=== PATIENT | male | born 1985 | race Caucasian/White ===

== ENCOUNTER 2018-03-07 16:22 | Emergency (ER) | payer BC ==
[~2018-03-07] VITALS: Ht 175.3 cm; Wt 113.4 kg
[~2018-03-07 16:22] MED LIST: AZIT500T PO; FLUO20CA16 PO; FLUO40CA9 PO; OXYC-323 PO; [UNRECOGNIZED DRUG - OTHER]
[2018-03-07] MEDS ORDERED: HYDROcodone/APAP 5/325MG 1 TAB TABLET PO ONE (16:45)
--- NOTE | 2018-03-07 16:48 | PHYS DOC ---
Past History Past Medical History: Anxiety Past Surgical History: Appendectomy, Tonsillectomy Alcohol Use: Occasionally Drug Use: None Adult General HPI HPI Patient is a 32-year-old male who presents for evaluation of left knee injury. 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 The knee has become somewhat stiff and he feels like there is pressure and has pain when weightbearing or bending the knee. It does not feel unstable to him. He has no history of previous injury to the knee. He denies significant past medical history. He is alert and oriented 4, calm, and appears to be in no distress. Review of Systems Review of Systems Constitutional: Denies fever or chills [] Eyes: Denies change in visual acuity, redness, or eye pain [] HENT: Denies nasal congestion or sore throat [] Respiratory: Denies cough or shortness of breath [] Cardiovascular: No additional information not addressed in HPI [] GI: Denies abdominal pain, nausea, vomiting, bloody stools or diarrhea [] : Denies dysuria or hematuria [] Musculoskeletal: Denies back pain, left knee pain Integument: Denies rash or skin lesions [] Neurologic: Denies headache, focal weakness or sensory changes [] Endocrine: Denies polyuria or polydipsia [] All other systems were reviewed and found to be within normal limits, except as documented in this note. Current Medications Current Medications Current Medications Medications (Trade) Dose Ordered Sig/Dali Start Time Stop Time Status Last Admin Dose Admin Acetaminophen/ Hydrocodone Bitart (Lortab 5/325) 1 tab 1X ONCE 03/07/18 16:45 03/07/18 16:46 UNV Allergies Allergies Allergies Coded Allergies Type Severity Reaction Last Updated Verified No Known Drug Allergies 05/08/15 No Physical Exam Physical Exam Constitutional: Well developed, well nourished, no acute distress, non-toxic appearance. [] HENT: Normocephalic, atraumatic, bilateral external ears normal, oropharynx moist, no oral exudates, nose normal. [] Eyes: PERRLA, EOMI, conjunctiva normal, no discharge. [] Neck: Normal range of motion, no tenderness, supple, no stridor. [] Cardiovascular:Heart rate regular rhythm, no murmur [] Lungs & Thorax: Bilateral breath sounds clear to auscultation [] Abdomen: Bowel sounds normal, soft, no tenderness, no masses, no pulsatile masses. [] Skin: Warm, dry, no erythema, no rash. [] Back: No tenderness, no CVA tenderness. [] Extremities: no cyanosis, no clubbing, ROM intact, no edema. [] left knee with mild effusion, FROM left knee, no deformity/dislocation Neurologic: Alert and oriented X 3, normal motor function, normal sensory function, no focal deficits noted. [] Psychologic: Affect normal, judgement normal, mood normal. [] EKG EKG [] Radiology/Procedures Radiology/[place] [address] IMAGING REPORT Signed PATIENT: SOTO MANLEY ACCOUNT: [id number] : 1985 LOCATION: ER AGE: 32 SEX: M EXAM STATUS: REG ER ORD. PHYSICIAN: MAGDY BLOUNT DO REASON: left knee pain PROCEDURE: KNEE LEFT 3V Three-view left knee radiographs 03/07/2018 CLINICAL HISTORY: Twisting injury to the left knee with swelling and pain. AP, lateral and oblique digital radiographs of the left knee were obtained. No fracture or dislocation of the left knee is seen. Very mild degenerative changes are seen involving the medial and lateral compartment of the left knee. There is no definite radiographic evidence of a joint effusion. IMPRESSION: No fracture or dislocation of the left knee is seen. Electronically signed by: Cliff Yost MD (03/07/2018 5:30 PM) [facility] DICTATED AND SIGNED BY: CLIFF YOST MD DATE: 03/07/18 2436 CC: MAGDY BLOUNT DO; CASH CRUZ ~ Course & Med Decision Making Course & Med Decision Making Pertinent Labs and Imaging studies reviewed. (See chart for details) @7222 - patient informed of x-ray results. He has no additional complaints. Crutches provided along with education and left knee immobilizer applied. The patient would prefer to follow up with his orthopedic surgeon and has been encouraged to do so. Pain medication provided. Dragon Disclaimer Dragon Disclaimer This electronic medical record was generated, in whole or in part, using a voice recognition dictation system. Departure Departure: Impression: Primary Impression: Acute internal derangement of knee Additional Impression: Left knee injury Disposition: 01 HOME, SELF-CARE Condition: STABLE Referrals: CASH CRUZ (PCP) Additional Instructions: Follow-up with your personal orthopedic surgeon. Take the prescribed medicine as directed, as needed. Return to the ER for new or worsening symptoms. Scripts Hydrocodone Bit/Acetaminophen (NORCO 5-325 TABLET) 1 Each Tablet 1 TAB PO TID PRN for PAIN, #20 TAB Prov: MAGDY BLOUNT DO 03/07/18 Problem Qualifiers MAGDY BLOUNT DO Mar 07, 2018 16:48
--- NOTE | 2018-03-07 17:34 | RAD ---
Three-view left knee radiographs 03/07/2018 CLINICAL HISTORY: Twisting injury to the left knee with swelling and pain. AP, lateral and oblique digital radiographs of the left knee were obtained. No fracture or dislocation of the left knee is seen. Very mild degenerative changes are seen involving the medial and lateral compartment of the left knee. There is no definite radiographic evidence of a joint effusion. IMPRESSION: No fracture or dislocation of the left knee is seen. Electronically signed by: Cliff Yost MD (03/07/2018 5:30 PM) [facility]
[2018-03-07 17:40] VITALS: BP 143/102
[2018-03-07] MEDS ORDERED: HYDR-971 PO (17:40)
== END 2018-03-07 17:45 | disposition home or self-care (01) ==
LOC: ER 16:22
DX: S89.92XA Unspecified injury of left lower leg, initial encounter (principal); M23.92 Unspecified internal derangement of left knee; F41.9 Anxiety disorder, unspecified; X50.1XXA Overexertion from prolonged static or awkward postures, initial encounter; Y93.89 Activity, other specified; Y99.8 Other external cause status; Y92.89 Other specified places as the place of occurrence of the external cause
CPT/HCPCS: 29505; 73562; 99284

== ENCOUNTER 2019-10-02 21:53 | Emergency (ER) | payer BC ==
[~2019-10-02] VITALS: Ht 175.3 cm; Wt 117.7 kg
[~2019-10-02 21:53] MED LIST changes: +HYDR-3165 PO; -OXYC-323 PO; +OXYC1TAB15 PO
[2019-10-02 23:00] VITALS: BP 165/130
--- NOTE | 2019-10-02 23:14 | PHYS DOC ---
Past History Past Medical History: Alcoholism, Anxiety, Hypertension Past Surgical History: Appendectomy, Tonsillectomy Past Surgical History left shoulder and left knee Alcohol Use: Heavy Drug Use: None Adult General Chief Complaint Chief Complaint: LOWER BACK PAIN OR INJURY HPI HPI Patient is a 34-year-old male presents the ED with left sided rib pain and back pain following a fall. Patient states that after having 12 beers he must have passed out and fell and was found on his back on the floor. Patient does not recall hitting his head. Denies pain. He is currently having left chest wall pain, bilateral lower back pain, and an aching in his testicles. Patient reports the back pain and testicle aching been going on for the past couple of weeks. He denies fevers, dysuria, hematuria, headache, nausea, or vomiting. Patient also reports episodes of bloody stool a few days ago but denies abdominal pain. Patient also reports that he recently ran out of his blood pressure medication that his blood pressure has been running high. Reports drinking 12 beers daily. Review of Systems Review of Systems Constitutional: Denies fever or chills Eyes: Denies redness or eye pain HENT: Denies nasal congestion or sore throat Respiratory: Denies cough or shortness of breath Cardiovascular: Reports left sided chest pain; denies palpitations GI: Denies abdominal pain, nausea, or vomiting. Reports blood in stool. : Denies dysuria or hematuria. Reports aching in testicles. Musculoskeletal: Bilateral lower back pain. Denies neck pain Integument: Denies rash or skin lesions Neurologic: Denies headache, focal weakness or sensory changes Complete systems were reviewed and found to be within normal limits, except as documented in this note. Allergies Allergies Allergies Coded Allergies Type Severity Reaction Last Updated Verified No Known Drug Allergies 05/08/15 No Physical Exam Physical Exam Constitutional: Well developed, disheveled, no acute distress, non-toxic appearance HENT: Normocephalic, atraumatic, oropharynx moist Eyes: PERRL, EOMI, bilateral conjunctivae are injected, horizontal nystagmus noted. Neck: Normal range of motion, no tenderness, supple Cardiovascular: Heart rate normal, regular rhythm Lungs & Thorax: Bilateral breath sounds clear to auscultation, no wheezing Abdomen: Soft, no tenderness Skin: Warm, dry, no erythema, no rash Extremities: No tenderness, ROM intact, no edema Neurologic: Alert and oriented X 3, normal motor function, normal sensory function, no focal deficits noted Psychologic: Affect normal, judgement normal EKG EKG @2319 Sinus tachycardia at 105bpm, NO ST elevation, nonspecific t wave inversion III Radiology/Procedures Radiology/Procedures PROCEDURE: CT HEAD AND CERVICAL SPINE WO CT head without contrast: Reason for examination: Syncope. Headache and neck pain. Axial images were obtained through the brain. No contrast was administered. Ventricular systems are symmetric and not dilated. No midline shift is seen. There is no evidence of intracranial hemorrhage, infarct, mass or edema. There is a small polypoid lesion in the right maxillary antrum. Remaining paranasal sinuses are clear and the mastoid air cells are clear. No abnormalities are seen at the orbits. No acute abnormality seen in the skull. IMPRESSION: No acute intracranial abnormality evident. CT cervical spine without contrast: Helical images were obtained through the cervical spine from the skull base through the thoracic apices with no contrast administered. Reconstruction was performed in sagittal and coronal planes. C1 ring is intact. The odontoid process appears to be intact and normally centered between the lateral masses of C1. Cervical vertebral bodies are normally aligned anteriorly and posteriorly. No acute fracture or subluxation is seen. Posterior elements are intact. There are some hypertrophic changes on the anterior endplates at the C5-6 disc level. The intervertebral discs however are fairly well-maintained. No significant spinal stenosis is seen. Prevertebral soft tissues are normal. IMPRESSION: Hypertrophic spurring off the anterior endplates at the C5-6 level. No acute abnormality evident in the cervical spine. Exposure: One or more of the following individualized dose reduction techniques were utilized for this examination: 1. Automated exposure control 2. Adjustment of the mA and/or kV according to patient size 3. Use of iterative reconstruction technique. Electronically signed by: Ayla Haq MD (10/03/2019 12:14 AM) [facility] PROCEDURE: CT CHEST ABD PELVIS W/CONTRAST CT chest, abdomen and pelvis with contrast: Reason for examination: Fell with left-sided chest and rib pain and low back pain. History of appendectomy. Helical images were obtained through the chest, abdomen and pelvis with intravenous administration of 75 cc Omnipaque 300. Reconstruction was performed in sagittal and coronal planes. Exposure: One or more of the following individualized dose reduction techniques were utilized for this examination: 1. Automated exposure control 2. Adjustment of the mA and/or kV according to patient size 3. Use of iterative reconstruction technique. No abnormality seen at the thyroid gland. The trachea and mainstem bronchi show no intraluminal lesions. No abnormality seen at the esophagus. The thoracic aorta shows no aneurysmal dilatation or dissection. The heart size is normal with no pericardial effusion. A few small nonspecific lymph nodes are seen in the mediastinum. The lung burk are clear. No acute bony abnormalities are evident in the thorax. In the abdomen, there appears be fatty infiltration in the liver without a focal lesion. No abnormality seen at the gallbladder, adrenal glands, spleen or pancreas. Note is made of a small splenule. The abdominal aorta and inferior vena cava show no acute abnormalities. The appendix is surgically absent. The colon shows no diverticulosis, diverticulitis or colitis. The small intestinal tract shows no abnormal dilatation, wall thickening or obstruction. No abnormality seen at the stomach. The kidneys show no renal masses, renal calculi, hydronephrosis or evidence of obstructive uropathy. No abnormality seen at the bladder, prostate gland or seminal vesicles. There are several calcifications consistent with phleboliths in the pelvis. No free fluid or free air is seen in the abdomen or pelvis. There are some hypertrophic changes off the anterior endplates at the L4 and L5 levels but no acute bony abnormalities are seen. IMPRESSION: No acute abnormality evident in the abdomen or pelvis. Electronically signed by: Ayla Haq MD (10/03/2019 12:28 AM) [facility] Course & Med Decision Making Course & Med Decision Making Pertinent Labs and Imaging studies reviewed. (See chart for details) Patient presents with left chest wall pain and back pain following a fall at home after consuming 12 beers. Patient states that he normally consumes 10-12 beers each day. Labs obtained and posted to chart. EKG stable. CT he ad/cervical spine without acute process. CT chest/abd/pelvis also without acute process. Symptomatic treatment provided including banana bag, pepcid, and zofran. Patient stable for discharge with outpatient follow-up with PCP. Discussed findings and plan with patient and family, who acknowledge understanding and agreement. Dragon Disclaimer Dragon Disclaimer This electronic medical record was generated, in whole or in part, using a voice recognition dictation system. Departure Departure: Impression: Primary Impression: Left-sided chest wall pain Additional Impressions: Alcoholism Back pain Disposition: HOME, SELF-CARE Condition: STABLE Referrals: CASH CRUZ (PCP) Patient Instructions: Alcohol and Drug Addiction, Finding Treatment, Back Pain, Adult, [id number], Chest Wall Pain, [id number], Chronic Alcoholism Scripts Naproxen (NAPROXEN) 375 Mg Tablet 1 TAB PO TID PRN for PAIN, #20 TAB 0 Refills with food Prov: FARIHA GUTIERREZ DO 10/03/19 Famotidine (PEPCID) 20 Mg Tablet 1 TAB PO BID for gastritis, #20 TAB Prov: FARIHA GUTIERREZ DO 10/03/19 Orphenadrine Citrate (ORPHENADRINE CITRATE) 100 Mg Tablet.er 1 TAB PO BID PRN for MUSCLE PAIN, #14 TAB 0 Refills Prov: FARIHA GUTIERREZ DO 10/03/19 Problem Qualifiers Additional Impressions: Back pain Back pain location: low back pain Chronicity: acute Back pain laterality: left Sciatica presence: unspecified whether sciatica present Qualified Codes: M54.5 - Low back pain FARIHA GUTIERREZ DO Oct 02, 2019 23:14
[2019-10-02] MEDS ORDERED: THIAMINE 200 MG/2 ML VIAL. IV ONE (23:16)
[2019-10-02] MEDS ORDERED: ORPHENADRINE CITRATE 60 MG/2 ML VIAL. IV ONE (23:30)
[2019-10-02] MEDS ORDERED: MVI, ADULT NO.4 WITH VIT K 10 ML, FOLIC ACID INJ 1 MG, THIAMINE INJ 100 MG in IV NORMAL... IV ONE ×4 (23:30)
[2019-10-02] MEDS ORDERED: FAMOTIDINE 20 MG/2 ML VIAL IVP ONE (23:30)
[2019-10-02] MEDS ORDERED: IOHEXOL 300 MG/ML 75 ML VIAL. IV ONE (23:45)
[2019-10-02] MEDS ORDERED: CONTRAST GIVEN MC PRN (23:45)
[2019-10-02 23:56] LABS: BASO % 1 % (0-3); EOS # 0.2 x10^3/uL (0.0-0.7); EOS % 3 % (0-3); HEMATOCRIT 46.9 % (39.0-53.0); HEMOGLOBIN 16.5 g/dL (13.0-17.5); LYMPH # 2.4 x10^3/uL (1.0-4.8); LYMPH % 48 % (24-48); MEAN CORPUSCULAR HEMOGLOBIN 33 pg (25-35); MEAN CORPUSCULAR HGB CONC 35 g/dL (31-37); MEAN CORPUSCULAR VOLUME 94 fL (79-100); MONO # 0.6 x10^3/uL (0.0-1.1); MONO % 12 % (0-9); NEUT # 1.8 x10^3uL (1.8-7.7); NEUT % 36 % (31-73); PLATELET COUNT 187 x10^3/uL (140-400); RED BLOOD COUNT 5.01 x10^6/uL (4.30-5.70); RED CELL DISTRIBUTION WIDTH 12.6 % (11.5-14.5)
[2019-10-03 00:02] LABS: CREATININE 0.7 mg/dL (0.7-1.3); GFR 128.3; POTASSIUM 3.9 mmol/L (3.5-5.1)
[2019-10-03 00:08] LABS: ALBUMIN 4.1 g/dL (3.4-5.0); ALBUMIN/GLOBULIN RATIO 1.1 (1.0-1.7); MAGNESIUM 2.2 mg/dL (1.8-2.4); TOTAL BILIRUBIN 0.3 mg/dL (0.2-1.0)
--- NOTE | 2019-10-03 00:17 | RAD ---
CT head without contrast: Reason for examination: Syncope. Headache and neck pain. Axial images were obtained through the brain. No contrast was administered. Ventricular systems are symmetric and not dilated. No midline shift is seen. There is no evidence of intracranial hemorrhage, infarct, mass or edema. There is a small polypoid lesion in the right maxillary antrum. Remaining paranasal sinuses are clear and the mastoid air cells are clear. No abnormalities are seen at the orbits. No acute abnormality seen in the skull. IMPRESSION: No acute intracranial abnormality evident. CT cervical spine without contrast: Helical images were obtained through the cervical spine from the skull base through the thoracic apices with no contrast administered. Reconstruction was performed in sagittal and coronal planes. C1 ring is intact. The odontoid process appears to be intact and normally centered between the lateral masses of C1. Cervical vertebral bodies are normally aligned anteriorly and posteriorly. No acute fracture or subluxation is seen. Posterior elements are intact. There are some hypertrophic changes on the anterior endplates at the C5-6 disc level. The intervertebral discs however are fairly well-maintained. No significant spinal stenosis is seen. Prevertebral soft tissues are normal. IMPRESSION: Hypertrophic spurring off the anterior endplates at the C5-6 level. No acute abnormality evident in the cervical spine. Exposure: One or more of the following individualized dose reduction techniques were utilized for this examination: 1. Automated exposure control 2. Adjustment of the mA and/or kV according to patient size 3. Use of iterative reconstruction technique. Electronically signed by: Ayla Haq MD (10/03/2019 12:14 AM) [facility]
--- NOTE | 2019-10-03 00:31 | RAD ---
CT chest, abdomen and pelvis with contrast: Reason for examination: Fell with left-sided chest and rib pain and low back pain. History of appendectomy. Helical images were obtained through the chest, abdomen and pelvis with intravenous administration of 75 cc Omnipaque 300. Reconstruction was performed in sagittal and coronal planes. Exposure: One or more of the following individualized dose reduction techniques were utilized for this examination: 1. Automated exposure control 2. Adjustment of the mA and/or kV according to patient size 3. Use of iterative reconstruction technique. No abnormality seen at the thyroid gland. The trachea and mainstem bronchi show no intraluminal lesions. No abnormality seen at the esophagus. The thoracic aorta shows no aneurysmal dilatation or dissection. The heart size is normal with no pericardial effusion. A few small nonspecific lymph nodes are seen in the mediastinum. The lung burk are clear. No acute bony abnormalities are evident in the thorax. In the abdomen, there appears be fatty infiltration in the liver without a focal lesion. No abnormality seen at the gallbladder, adrenal glands, spleen or pancreas. Note is made of a small splenule. The abdominal aorta and inferior vena cava show no acute abnormalities. The appendix is surgically absent. The colon shows no diverticulosis, diverticulitis or colitis. The small intestinal tract shows no abnormal dilatation, wall thickening or obstruction. No abnormality seen at the stomach. The kidneys show no renal masses, renal calculi, hydronephrosis or evidence of obstructive uropathy. No abnormality seen at the bladder, prostate gland or seminal vesicles. There are several calcifications consistent with phleboliths in the pelvis. No free fluid or free air is seen in the abdomen or pelvis. There are some hypertrophic changes off the anterior endplates at the L4 and L5 levels but no acute bony abnormalities are seen. IMPRESSION: No acute abnormality evident in the abdomen or pelvis. Electronically signed by: Ayla Haq MD (10/03/2019 12:28 AM) [facility] [place]
[2019-10-03 00:38] LABS: BARBITURATES NEG (NEG); BENZODIAZEPINES NEG (NEG); CANNABINOIDS NEG (NEG); COCAINE NEG (NEG); METHADONE NEG (NEG); OPIATES NEG (NEG); PHENCYCLIDINE NEG (NEG)
[2019-10-03 00:39] LABS: BACTERIA,URINE 0 /HPF (0-FEW); BILIRUBIN,URINE NEG (NEG); CLARITY,URINE CLEAR; COLOR,URINE YELLOW; GLUCOSE,URINE NEG (NEG); NITRITE,URINE NEG (NEG); RBC,URINE 0 /HPF (0-2); SQUAMOUS EPITHELIAL CELL,UR OCC /LPF; UROBILINOGEN,URINE 0.2 mg/dL (0.2 mg/dL); WBC,URINE OCC /HPF (0-4)
[2019-10-03 00:40] LABS: AMPHETAMINE/METHAMPHETAMINE NEG (NEG)
[2019-10-03] MEDS ORDERED: FAMO-63 PO (00:46)
[2019-10-03] MEDS ORDERED: ORPH-16 PO (00:46)
[2019-10-03] MEDS ORDERED: NAPR-695 PO (00:48)
[2019-10-03] MEDS ORDERED: KETOROLAC 15 MG/ML VIAL. IVP ONE (01:00)
[2019-10-03] MEDS ORDERED: KETOROLAC 15 MG/ML VIAL. ONE (01:17)
--- NOTE | 2019-10-03 05:24 | EKG ---
[address] [address] Test Date: 2019-10-02 Test Time: 23:19:22 Pat Name: SOTO MANLEY Department: Room: Gender: M [employer]: : 1985 Requested By: FARIHA GUTIERREZ Order Number: [id number] Reading MD: Measurements Intervals [place] Rate: 105 P: 31 MT: 178 QRS: 8 QRSD: 92 T: 16 QT: 342 QTc: 456 Interpretive Statements SINUS TACHYCARDIA QRS(T) CONTOUR ABNORMALITY CONSIDER ANTEROLATERAL MYOCARDIAL DAMAGE POSSIBLY ABNORMAL ECG RI6.01 No previous ECG available for comparison
== END 2019-10-03 01:25 | disposition home or self-care (01) ==
LOC: ER 21:53
DX: R07.81 Pleurodynia (principal); M54.5 Low back pain; K92.1 Melena; N50.812 Left testicular pain; N50.811 Right testicular pain; R55 Syncope and collapse; F10.20 Alcohol dependence, uncomplicated; Y90.8 Blood alcohol level of 240 mg/100 ml or more; W18.39XA Other fall on same level, initial encounter; Y93.89 Activity, other specified; Y92.89 Other specified places as the place of occurrence of the external cause; Y99.8 Other external cause status; I10 Essential (primary) hypertension
CPT/HCPCS: 36415; 70450; 71260; 72125; 74177; 80053; 80307; 81001; 82553; 83690; 83735; 84484; 85025; 85610; 85730; 93005; 96365; 96375; 99285; G0480; J1885; J2360; J3490; Q9967; J7030

== ENCOUNTER → 2021-04-06 | Outpatient (CLI) | payer BC ==
[~2021-04-06] MED LIST changes: +FAMO-63 PO; +NAPR-695 PO; +ORPH-16 PO
--- NOTE | 2021-04-06 09:41 | RAD ---
EXAM: XR KNEE _3 VIEWS_LT 04/06/2021 9:24 AM CLINICAL INDICATION: Left knee pain, history of ACL and PCL repair COMPARISON: Left knee radiograph 03/07/2018. TECHNIQUE: 3 views of the left knee FINDINGS: There are surgical changes of ACL repair. No acute fracture. Alignment is normal. No joint effusion. Joint spaces are maintained. IMPRESSION: No acute osseous abnormality. Electronically signed by: Dianna Trotter MD (04/06/2021 9:39 AM) [id number]
== END ==
LOC: RAD 09:17
PROVIDERS: ATTEND Physician Assistant
DX: M25.562 Pain in left knee (principal)
CPT/HCPCS: 73562

== ENCOUNTER 2021-06-17 18:07 | Emergency (ER) | payer BC ==
[~2021-06-17] VITALS: Ht 175.3 cm; Wt 102.5 kg
[2021-06-17] MEDS: DEXAMETHASONE 4 MG TABLET PO ONE (18:43)
--- NOTE | 2021-06-17 18:51 | PHYS DOC ---
Past History Past Medical History: Alcoholism, Anxiety, Hypertension Past Surgical History: Other Additional Past Surgical Histo: LEFT KNEE, LEFT SHOULDER Additional Smoking Information: CHEWS Alcohol Use: Heavy Drug Use: None General Adult EDM: Chief Complaint: SHORTNESS OF BREATH HPI: HPI: Patient is a [age] year old [sex] who presents with [] Review of Systems: Review of Systems: Constitutional: Denies fever or chills Eyes: Denies redness or eye pain HENT: Denies nasal congestion or sore throat Respiratory: Denies cough or shortness of breath Cardiovascular: Denies chest pain or palpitations GI: Denies abdominal pain, nausea, or vomiting : Denies dysuria or hematuria Musculoskeletal: Denies back pain or joint pain Integument: Denies rash or skin lesions Neurologic: Denies headache, focal weakness or sensory changes Complete systems were reviewed and found to be within normal limits, except as documented in this note. Current Medications: Current Meds: Current Medications Medications (Trade) Dose Ordered Sig/Dali Start Time Stop Time Status Last Admin Dose Admin Dexamethasone (Decadron) 10 mg 1X ONCE 06/17/21 18:30 06/17/21 18:38 DC 06/17/21 18:43 10 MG Allergies: Allergies: Allergies Coded Allergies Type Severity Reaction Last Updated Verified No Known Drug Allergies 05/08/15 No Physical Exam: PE: Constitutional: Well developed, well nourished, no acute distress, non-toxic appearance HENT: Normocephalic, atraumatic Eyes: PERRL, EOMI, conjunctiva normal, no discharge Neck: Normal range of motion, no tenderness, supple Lungs & Thorax: No respiratory distress, equal chest rise and fall Abdomen: Soft, no tenderness Skin: Warm, dry, no erythema, no rash Back: No tenderness, no CVA tenderness Extremities: No tenderness, ROM intact, no edema Neurologic: Alert and oriented X 3, normal motor function, normal sensory function, no focal deficits noted Psychologic: Affect normal, judgment normal Current Patient Data: Vital Signs: Vital Signs Date Time Temp Pulse Resp B/P (MAP) Pulse Ox O2 Delivery O2 Flow Rate FiO2 06/17/21 18:15 99.0 114 20 148/92 (110) 98 Room Air EKG: EKG: @1839 Sinus tachycardia at 103bpm, NO ST elevation, QRS 90ms, QT/QTc 332/437ms Radiology/Procedures: Radiology/Procedures: [] Heart Score: C/O Chest Pain: N/A Course & Med Decision Making: Course & Med Decision Making Pertinent Labs and Imaging studies reviewed. (See chart for details) Patient stable for discharge with outpatient follow-up with PCP. Discussed findings and plan with patient, who acknowledges understanding and agreement. COVID-19 CRITERIA: The patient was evaluated during the global COVID-19 pandemic, and that diagnosis was suspected/considered upon their initial prese ntation. Their evaluation, treatment and testing was consistent with current guidelines for patients who present with complaints or symptoms that may be related to COVID-19. Dragon Disclaimer: Dragon Disclaimer: This electronic medical record was generated, in whole or in part, using a voice recognition dictation system. Departure Departure: Impression: Primary Impression: Bronchitis Additional Impression: Suspected 2019 novel coronavirus infection Disposition: HOME / SELF CARE / HOMELESS Condition: STABLE Referrals: CASH CRUZ (PCP) Patient Instructions: Acute Bronchitis, [id number], Viral Syndrome Additional Instructions: You have been tested for or diagnosed with COVID-19. It is an infection caused by a new type of coronavirus. COVID-19 will cause cold-like or mild flu symptoms in most. It can cause more severe symptoms like problems breathing in some. There is no treatment for COVID-19. The body will clear the infection over time. Self-care will help to ease discomfort. Steps to Take: Self-Care Rest as needed. Healthy habits may help you feel better. Steps include: Choose healthy foods including fruits and vegetables. Drink water throughout the day. Get plenty of sleep each night. If you smoke, try to quit. It may ease breathing. Avoid alcohol. Keep Others Healthy The virus can spread to others. Droplets are released every time you sneeze or cough. The droplets can get into the mouth, nose, or eyes of people near you and lead to infection. To lower the chances of spreading COVID-19 to others: Stay at home until your doctor has said it is safe to leave. If you tested positive this will mean staying isolated until both of the following are true: At least 7 days have passed since the start of illness. You are free of fever for at least 72 hours without the use of medicine. During this time: - Avoid public areas, events, or transportation. Do not return to work or school until your doctor has said it is safe to do so. - Call ahead if you need to go to a medical center. Let them know you may have COVID-19. It will help them guide you where to go. They may also ask you to wear a facemask when you come to the office. - If you call for emergency medical services, let them know you may have COVID- 19. While at home: - Try to avoid close contact with others. Stay about 6 feet away. - If possible, spend most of your time in a separate room from others. - Use a face mask if you will be in close contact with others such as sharing a room or vehicle. - Have someone wipe down common surfaces in the home. Use household laborer tan house every day on areas like doorknobs, counters, or sinks. - Cough or sneeze into a tissue. Throw the tissue away right after use. If a tissue is not available, cough or sneeze into your elbow. - Wash your hands often. Wash them after sneezing or coughing. Use soap and water and wash for at least 20 seconds. Alcohol based hand assembly cleaner can be used if soap and water is not available. - Do not prepare food for others. Avoid sharing personal items like forks, spoons, or toothbrushes. - Avoid close contact with pets while you are sick. There is no evidence of the virus passing to pets. This is a safety step until more is known about this virus. Isolation can be frustrating. Social interaction can help. Keep in touch with friends and family through phone and tech options. You can still interact with others in your home, just keep a safe distance of about 6 feet. Follow-up: Your doctors office will check in with you to see if there are any changes in your health. You may be asked to keep track of symptoms to share with them. They will also let you know when you are clear to be in public again. Problems to Look Out For: Contact your doctor if your recovery is not going as you expect. Get emergency care if you have problems such as: - Trouble breathing - Nonstop chest pain or pressure - Changes in awareness, confusion, or problems waking - Lips or face have bluish color - Worsening of symptoms If you think you have an emergency, call for emergency medical services right away. As taken from [facility] Azithromycin (AZITHROMYCIN TABLET) 250 Mg Tablet 1 PKG PO UD for bronchitis, #6 TAB Take 2 tablets today and then one tablet every day thereafter for the next 4 days Prov: FARIHA GUTIERREZ DO 06/17/21 Prednisone (PREDNISONE) 20 Mg Tablet 2 TAB PO DAILY for Bronchitis, #8 TAB Start this prescription tomorrow, 06/18/21 Prov: FARIHA GUTIERREZ DO 06/17/21 Albuterol Sulfate (Proair Respiclick) 90 Mcg Aer.pow.ba 2 PUFF IH PRN Q6HRS PRN for shortness of breath, #1 INHALER 0 Refills Prov: FARIHA GUTIERREZ DO 06/17/21 FARIHA GUTIERREZ DO Jun 17, 2021 18:50
[2021-06-17] MEDS ORDERED: AZIT250T6 PO (18:54)
[2021-06-17] MEDS ORDERED: PRED20TA PO (18:54)
[2021-06-17] MEDS ORDERED: PROAIR RESPICL90 MCG IH (18:54)
--- NOTE | 2021-06-17 18:55 | EKG ---
[address] [address] Test Date: 2021-06-17 Test Time: 18:39:04 Pat Name: SOTO MANLEY Department: Room: Gender: M Residential Team Leader: BENIGNO : 1985 Requested By: FARIHA GUTIERREZ Order Number: [id number] Reading MD: Measurements Intervals [place] Rate: 103 P: 21 MA: 166 QRS: 15 QRSD: 90 T: 18 QT: 332 QTc: 437 Interpretive Statements SINUS TACHYCARDIA OTHERWISE NORMAL ECG RI6.02 No previous ECG available for comparison
--- NOTE | 2021-06-17 19:06 | RAD ---
XR CHEST 1V History: Reason: cough / Spl. Instructions: / History: Comparison: None. Findings: No consolidation or pleural effusion. Normal heart size. No pneumothorax. Impression: 1. No acute cardiopulmonary process. Electronically signed by: Aroldo Segura DO (06/17/2021 7:03 PM) [facility]
[2021-06-17 19:14] VITALS: BP 135/74
== END 2021-06-17 19:25 | disposition home or self-care (01) ==
LOC: ER 18:07
DX: J40 Bronchitis, not specified as acute or chronic (principal); I10 Essential (primary) hypertension; F41.9 Anxiety disorder, unspecified; F17.220 Nicotine dependence, chewing tobacco, uncomplicated; F10.20 Alcohol dependence, uncomplicated; Z20.822 Contact with and (suspected) exposure to COVID-19; Y90.9 Presence of alcohol in blood, level not specified
CPT/HCPCS: 71045; 93005; 99285; C9803; J8540; U0003

== ENCOUNTER → 2021-07-27 | Outpatient (CLI) | payer BC ==
[~2021-07-27] MED LIST changes: +AZIT250T6 PO; +PRED20TA PO; +PROAIR RESPICL90 MCG IH
[2021-07-27 15:13] LABS: BASO % 1 % (0-3); EOS # 0.1 x10^3/uL (0.0-0.7); EOS % 2 % (0-3); HEMATOCRIT 44.3 % (39.0-53.0); HEMOGLOBIN 15.1 g/dL (13.0-17.5); LYMPH % 43 % (24-48); MEAN CORPUSCULAR HEMOGLOBIN 33 pg (25-35); MEAN CORPUSCULAR HGB CONC 34 g/dL (31-37); MEAN CORPUSCULAR VOLUME 97 fL (79-100); MONO # 0.5 x10^3/uL (0.0-1.1); MONO % 11 % (0-9); NEUT % 43 % (31-73); PLATELET COUNT 166 x10^3/uL (140-400); RED BLOOD COUNT 4.59 x10^6/uL (4.30-5.70); RED CELL DISTRIBUTION WIDTH 12.5 % (11.5-14.5); WHITE BLOOD COUNT 4.6 x10^3/uL (4.0-11.0)
[2021-07-27 15:34] LABS: ALBUMIN 3.9 g/dL (3.4-5.0); ALBUMIN/GLOBULIN RATIO 1.1 (1.0-1.7); CALCIUM 9.3 mg/dL (8.5-10.1); CREATININE 0.7 mg/dL (0.7-1.3); GFR 127.6; TOTAL BILIRUBIN 0.3 mg/dL (0.2-1.0); TOTAL PROTEIN 7.6 g/dL (6.4-8.2)
== END ==
LOC: LAB 13:49
PROVIDERS: ATTEND Physician Assistant Medical
DX: F41.8 Other specified anxiety disorders (principal); F10.10 Alcohol abuse, uncomplicated
CPT/HCPCS: 36415; 80053; 82150; 85025

== ENCOUNTER → 2021-09-30 | Emergency (ER) | payer BC ==
[~2021-09-30] MED LIST changes: +IV RINGERS SOLUTION,LACTATED 1,000 ML IV SCH
[2021-09-30 23:04] LABS: BARBITURATES NEG (NEG); BENZODIAZEPINES NEG (NEG); CANNABINOIDS NEG (NEG); COCAINE NEG (NEG); METHADONE NEG (NEG); OPIATES NEG (NEG); PHENCYCLIDINE NEG (NEG)
[2021-09-30 23:07] LABS: BACTERIA,URINE 0 /HPF (0-FEW); BILIRUBIN,URINE NEG (NEG); CLARITY,URINE CLEAR; COLOR,URINE YELLOW; GLUCOSE,URINE NEG (NEG); NITRITE,URINE NEG (NEG); RBC,URINE 0 /HPF (0-2); UROBILINOGEN,URINE 0.2 mg/dL (0.2 mg/dL); WBC,URINE 0 /HPF (0-4)
[2021-09-30 23:09] LABS: AMPHETAMINE/METHAMPHETAMINE NEG (NEG)
--- NOTE | 2021-09-30 23:11 | PHYS DOC ---
Past History Past Medical History: Alcoholism, Anxiety, Depression, Hypertension Past Surgical History: Other Additional Past Surgical Histo: LEFT KNEE, LEFT SHOULDER Smoking: Cigarettes Alcohol Use: Heavy Drug Use: None General Adult EDM: Chief Complaint: SUICIDAL IDEATION HPI: HPI: " I was drunk .. and said some stupid stuff.. I am not going to kill myself.. now..." Patient is a 36 year old male who presents with above hx of suicidal ideation Review of Systems: Review of Systems: Constitutional: Denies fever or chills Eyes: Denies change in visual acuity HENT: Denies nasal congestion or sore throat Respiratory: Denies cough or shortness of breath Cardiovascular: Denies chest pain or edema GI: Denies abdominal pain, nausea, vomiting, bloody stools or diarrhea : Denies dysuria Musculoskeletal: Denies back pain or joint pain Integument: Denies rash Neurologic: Denies headache, focal weakness or sensory changes Endocrine: Denies polyuria or polydipsia Lymphatic: Denies swollen glands Psychiatric: Complaints of SI, depression or anxiety Allergies: Allergies: Allergies Coded Allergies Type Severity Reaction Last Updated Verified No Known Drug Allergies 05/08/15 No Physical Exam: PE: Constitutional: Well developed, well nourished, no acute distress, non-toxic appearance. [] HENT: Normocephalic, atraumatic, bilateral external ears normal, oropharynx moist, no oral exudates, nose normal. [] Eyes: PERRLA, EOMI, conjunctiva normal, no discharge. [] Neck: Normal range of motion, no tenderness, supple, no stridor. [] Cardiovascular:Heart rate regular rhythm, no murmur [] Lungs & Thorax: Bilateral breath sounds clear to auscultation [] Abdomen: Bowel sounds normal, soft, no tenderness, no masses, no pulsatile masses. [] Skin: Warm, dry, no erythema, no rash. [] Back: No tenderness, no CVA tenderness. [] Extremities: No tenderness, no cyanosis, no clubbing, ROM intact, no edema. [] Neurologic: Alert and oriented X 3, normal motor function, normal sensory function, no focal deficits noted. [] Psychologic: Affect normal, judgement normal, mood normal. [] EKG: EKG: [] Radiology/Procedures: Radiology/Procedures: [] Heart Score: C/O Chest Pain: N/A Risk Factors: Risk Factors: DM, Current or recent (<one month) smoker, HTN, HLP, family history of CAD, obesity. Risk Scores: Score 0 - 3: 2.5% MACE over next 6 weeks - Discharge Home Score 4 - 6: 20.3% MACE over next 6 weeks - Admit for Clinical Observation Score 7 - 10: 72.7% MACE over next 6 weeks - Early Invasive Strategies Course & Med Decision Making: Course & Med Decision Making Pertinent Labs and Imaging studies reviewed. (See chart for details) See PAT report. Impression: 1. Alcohol Intoxication 2. Depression 3. Suicidal Ideation Note have lost of dictation- Item [id number]` [] Dragon Disclaimer: Dragon Disclaimer: This electronic medical record was generated, in whole or in part, using a voice recognition dictation system. Departure Departure: Referrals: CASH CRUZ (PCP) Dragon Disclaimer This chart was dictated in whole or in part using Voice Recognition software in a busy, high-work load, and often noisy Emergency Department environment. It may contain unintended and wholly unrecognized errors or omissions. LUIS ERNST MD Sep 30, 2021 23:11
--- NOTE | 2021-10-02 04:24 | EKG ---
[address] [address] Test Date: 2021-09-30 Test Time: 23:32:29 Pat Name: SOTO MANLEY Department: Room: Gender: M Automation Machine Builder: BENIGNO : 1985 Requested By: LUIS ERNST Order Number: [id number] Reading MD: Yasmani Scanlon Measurements Intervals [place] Rate: 110 P: 35 TN: 156 QRS: 4 QRSD: 94 T: 11 QT: 336 QTc: 460 Interpretive Statements SINUS TACHYCARDIA Electronically Signed On 10-03-2021 16:24:40 WIRE STRAIGHTENING MACHINE OPERATOR by Yasmani Scanlon
== END | disposition home or self-care (01) ==
LOC: ER 21:30
DX: R45.851 Suicidal ideations (principal); F32.9 Major depressive disorder, single episode, unspecified; F10.229 Alcohol dependence with intoxication, unspecified; F41.9 Anxiety disorder, unspecified; I10 Essential (primary) hypertension; F17.210 Nicotine dependence, cigarettes, uncomplicated; Y90.0 Blood alcohol level of less than 20 mg/100 ml
CPT/HCPCS: 36415; 80307; 81001; 93005; 99285